=== PATIENT | male | born 1945 | race Caucasian/White ===

== ENCOUNTER → 2016-12-27 | Outpatient (CLI) | payer MEDICARE ==
[~2016-12-27] MED LIST: ALLOPURINOL100 M1 PO; AMLODIPINE10 M2 PO; ARICEPT 10 MG T10 MG PO; ASPIRIN 81MG TA81 MG PO; CELEBREX 200MG200 MG PO; CELEBREX400 MG PO; DONEPEZIL 10MG10 MG PO; FLOMAX 0.4MG C0.4 MG PO; GEMFIBROZIL600 MG PO; HYDROCODONE1 TABLET PO; LEVAQUIN500 MG PO; METOCLOPRAMIDE10 M2 PO; METOPROLOL25 MG PO; Oxycodone5 MG PO; PRAVASTATIN 40M40 MG PO; PRAVASTATIN20 MG PO; PREVACID 15 MG15 M1 PO; PRILOSEC20 MG PO; REGLAN 5MG TABLE5 MG PO; TRAMADOL 50MG T50 M1 PO; TRAMADOL50 M1 PO; TRILIPIX45 M1 PO; ZYLOPRIM 300MG300 MG PO
[2016-12-27 15:09] LABS: LYMPH # 1.2 K/mm3 (0.7-4.5); LYMPH % 22.2 % (10-50)
[2016-12-27 16:39] LABS: BUN 14 mg/dL (7-18)
[2016-12-27 16:42] LABS: GFR (ESTIMATED) 66 ML/MIN (>60)
== END ==
LOC: LAB 14:48
PROVIDERS: Internal Medicine Adolescent Medicine
DX: E78.5 Hyperlipidemia, unspecified (principal); K63.5 Polyp of colon